=== PATIENT | female | born 1935 | race Caucasian/White ===

== ENCOUNTER → 2016-03-11 | Outpatient (CLI) | payer OTHER ==
--- NOTE | 2016-03-11 11:51 | US ---
Ultrasound Venous Duplex/Doppler left Leg History: Previous deep venous thrombosis in the left leg. COMPARISON: Ultrasound January 2016. Findings: Ultrasound venous duplex and Doppler imaging of the common femoral vein, femoral vein, pop liteal vein, calf veins, greater saphenous vein origin, and contralateral common femoral vein demonst rates normal compressibility, color flow, and Doppler flow without deep venous thrombosis. Impression: No deep venous thrombosis left leg.
== END ==
LOC: FIMAGING 10:51
PROVIDERS: ATTEND Internal Medicine Hematology & Oncology
DX: Z09 Encounter for follow-up examination after completed treatment for conditions other than malignant neoplasm (principal); C50.112 Malignant neoplasm of central portion of left female breast; Z86.718 Personal history of other venous thrombosis and embolism

== ENCOUNTER 2016-04-01 16:21 | Inpatient (IN) | payer OTHER ==
[2016-04-01] MEDS ORDERED: HYDROmorphONE/DILAUDID 1 MG/ML SYR IVP PRN (17:42)
[2016-04-01] MEDS ORDERED: ONDANSETRON 4 MG/2 ML VIAL IVP PRN (17:43)
[2016-04-01] MEDS ORDERED: ERTAPENEM 1 GM in NS 100 ML IV ONE (18:00)
[2016-04-01 18:49] LABS: % IMMATURE GRANULYOCYTES 0.6 % (0.0-1.1); ABSOLUTE IMMATURE GRANULOCYTES 0.08 10^3/uL (0.00-0.10); ADD DIFF? NO; ADD MORPH? NO; ADD SCAN? NO; ATYPICAL LYMPHOCYTE FLAG 0 (0-99); FRAGMENT RBC FLAG 0 (0-99); HEMATOCRIT 32.7 % (38.0-47.0); HEMOGLOBIN 11.4 g/dL (12.6-16.3); LEFT SHIFT FLG 0 (0-99); LIPEMIA HEMOLYSIS FLAG 90 (0-99); MEAN CELL HEMOGLOBIN 31.5 pg (27.9-34.1); MEAN CELL HEMOGLOBIN CONCENTR. 34.9 g/dL (32.4-36.7); MEAN CELL VOLUME 90.3 fL (81.5-99.8); MEAN PLATELET VOLUME 10.5 fL (8.7-11.7); PLATELET CLUMPS FLAG 0 (0-99); PLATELET COUNT 210 10^3/uL (150-400); RED BLOOD CELL COUNT 3.62 10^6/uL (4.18-5.33); RED CELL DISTRIBUTION WIDTH 12.7 % (11.5-15.2)
[2016-04-01] MEDS ORDERED: ACETAMINOPHEN 325 MG TAB PO PRN (19:00)
--- NOTE | 2016-04-01 19:25 | GHP ---
[f rep st] HISTORY AND PHYSICAL DATE OF ADMISSION: 04/01/2016 HISTORY OF PRESENT ILLNESS: The patient is an 80-year-old woman who 8 years ago had a right mastecto my and axillary lymph node dissection for breast cancer and in November underwent left lumpectomy and sentinel lymph node biopsies for a left breast cancer. She developed hematomas and a chronic seroma at the site which was resistant to repeated aspirations for which she underwent excision of the serom a cavity. This too was complicated by a hematoma and she subsequently had retraction of her nipple a nd recurrent drainage from her incision. She was scheduled for a left mastectomy for cosmesis with s ymmetry and comfort as well as prophylaxis for Wednesday. In the interim, she has developed cellulitis of the left breast which has been fairly resistant to outpatient Rocephin. PAST MEDICAL HISTORY: Breast cancers as per History of Present Illness. She also has hypertension, osteopenia, vitamin D deficiency, hypoxemia, hypothyroidism. PAST SURGICAL HISTORY: As per History of Present Illness, the right mastectomy and axillary lymph no de dissection, as well as left lumpectomy, sentinel lymph node biopsy, and excision of a chronic sero ma. MEDICATIONS: She takes vitamin D3 5000 units daily, Synthroid 12.5 mcg daily, Prilosec 20 mg 3 times a week, vitamin B12 500 mcg daily, atenolol 25 mg daily. ALLERGIES: She has no known drug allergies. FAMILY HISTORY: Her mother had breast cancer at age 55. SOCIAL HISTORY: She is a nonsmoker. REVIEW OF SYSTEMS: She denied fevers, chest pain, shortness of breath. She complained of redness of the left breast, pain in the left breast, nausea and vomiting. PHYSICAL EXAMINATION: VITAL SIGNS: Her temperature is 37.3, pulse 98, blood pressure 138/66, respir atory rate is 16. She is saturating 93% on room air. GENERAL: She is alert in no acute distress. Nontoxic appearing. Nonjaundiced. LUNGS: Clear to auscultation bilaterally. HEART: Regular rate and rhythm. ABDOMEN: Soft, nontender. BREASTS: Her left breast is erythematous centrally and tend er. LABORATORY DATA: CBC: White count is 14, hematocrit 33, platelets 210. ASSESSMENT: Cellulitis of the left breast. PLAN: She will be given broad-spectrum antibiotic therapy, IV fluid resuscitation and analgesia up t o the point of mastectomy, which is scheduled for Wednesday. If she becomes more toxic, she may require surgical debridement sooner. If she responds to IV antibiotic therapy this may help preserve some o f her skin flaps for mastectomy. /[id number]/MODL
[2016-04-01] MEDS: LR 1,000 ML IV SCH (20:11)
[2016-04-01] MEDS: HYDROCODONE/APAP 5/325 TAB PO PRN (20:34)
[2016-04-02 05:50] LABS: % IMMATURE GRANULYOCYTES 0.9 % (0.0-1.1); ADD DIFF? NO; ADD MORPH? NO; ADD SCAN? NO; ATYPICAL LYMPHOCYTE FLAG 0 (0-99); FRAGMENT RBC FLAG 0 (0-99); HEMATOCRIT 34.4 % (38.0-47.0); HEMOGLOBIN 11.6 g/dL (12.6-16.3); LEFT SHIFT FLG 20 (0-99); LIPEMIA HEMOLYSIS FLAG 80 (0-99); MEAN CELL HEMOGLOBIN 30.6 pg (27.9-34.1); MEAN CELL HEMOGLOBIN CONCENTR. 33.7 g/dL (32.4-36.7); MEAN CELL VOLUME 90.8 fL (81.5-99.8); MEAN PLATELET VOLUME 9.9 fL (8.7-11.7); PLATELET CLUMPS FLAG 10 (0-99); PLATELET COUNT 200 10^3/uL (150-400); RED BLOOD CELL COUNT 3.79 10^6/uL (4.18-5.33); RED CELL DISTRIBUTION WIDTH 12.7 % (11.5-15.2)
[2016-04-02] MEDS: LR 1,000 ML IV SCH (06:17)
[2016-04-02] MEDS: DOCUSATE SODIUM 100 MG CAP PO SCH ×2 (10:41→20:13)
[2016-04-02] MEDS: VANCOMYCIN HCL/NORMAL SALINE 250 ML IV SCH (10:42)
[2016-04-02] MEDS: ATENOLOL 25 MG TAB PO SCH (20:11)
[2016-04-02] MEDS: HYDROCODONE/APAP 5/325 TAB PO PRN (20:13)
[2016-04-03 05:16] LABS: % IMMATURE GRANULYOCYTES 1.6 % (0.0-1.1); ADD DIFF? NO; ADD MORPH? NO; ADD SCAN? NO; ATYPICAL LYMPHOCYTE FLAG 20 (0-99); FRAGMENT RBC FLAG 0 (0-99); HEMATOCRIT 33.9 % (38.0-47.0); HEMOGLOBIN 11.1 g/dL (12.6-16.3); LEFT SHIFT FLG 10 (0-99); LIPEMIA HEMOLYSIS FLAG 80 (0-99); MEAN CELL HEMOGLOBIN 30.2 pg (27.9-34.1); MEAN CELL HEMOGLOBIN CONCENTR. 32.7 g/dL (32.4-36.7); MEAN CELL VOLUME 92.4 fL (81.5-99.8); MEAN PLATELET VOLUME 9.6 fL (8.7-11.7); PLATELET CLUMPS FLAG 0 (0-99); PLATELET COUNT 219 10^3/uL (150-400); RED BLOOD CELL COUNT 3.67 10^6/uL (4.18-5.33); RED CELL DISTRIBUTION WIDTH 12.5 % (11.5-15.2)
[2016-04-03] MEDS: LEVOTHYROXINE 25 MCG TAB PO SCH (06:06)
[2016-04-03] MEDS: VANCOMYCIN HCL/NORMAL SALINE 250 ML IV SCH (09:42)
[2016-04-03] MEDS: DOCUSATE SODIUM 100 MG CAP PO SCH ×2 (09:48→19:34)
[2016-04-03] MEDS ORDERED: MIDAZOLAM 2 MG/2 ML VIAL ONE (11:24)
[2016-04-03] MEDS ORDERED: fentaNYL 250 MCG/5 ML INJ ONE (11:37)
[2016-04-03] MEDS ORDERED: BUPIVACAINE/EPI 0.5% 30 ML SDV ONE (11:47)
[2016-04-03] MEDS ORDERED: PROPOFOL 200 MG/20 ML VIAL ONE (12:08)
[2016-04-03] MEDS ORDERED: THROMBIN (RECOMBINANT) 20,000 UNIT SPRAY TP ONE (12:39)
[2016-04-03] MEDS ORDERED: fentaNYL 100 MCG/2 ML INJ ONE (13:35)
--- NOTE | 2016-04-03 14:19 | GOP ---
[f rep st] OPERATIVE REPORT DATE OF OPERATION: SURGEON: Karen Saavedra MD PREOPERATIVE DIAGNOSIS: Left breast cancer, chronic seroma, following multiple hematomas of the left breast. POSTOPERATIVE DIAGNOSIS: Left breast cancer, chronic seroma, following multiple hematomas of the left breast. PROCEDURE PERFORMED: Left mastectomy. FINDINGS: Chronic seroma tract within the central portion of the left breast, involving much of the breast, causing nipple retraction and distortion of the left breast. SPECIMENS: Left breast. ESTIMATED BLOOD LOSS: 200 mL. INDICATIONS: This is an 80-year-old woman, who is status post right mastectomy for breast cancer, and status post lumpectomy for left breast cancer. Her lumpectomy was complicated by hematomas as well as a chronic seroma, causing distortion of the breast and pain. She subsequently developed a soft tissue infection of the left breast and she desires left mastectomy. DESCRIPTION OF PROCEDURE: After informed consent was obtained and therapeutic antibiotics were continued, the patient was taken to the operating room, placed in a supine position. SCDs were placed to bilateral lower extremities. General anesthesia was administered. She was prepped and draped in a sterile fashion. After an appropriate surgical pause, a ruler and skin marker were used to fashion an elliptical incision surrounding the nipple-areolar complex. This incision was made using a 10 blade, and later extended laterally to prevent a lateral dog ear. Skin flaps were then created using Bovie electrocautery superiorly to the clavicle, medially to the lateral border of the sternum, inferiorly to the inframammary fold, and laterally to include the tail of the breast to the latissimus. The breast tissue was then dissected with the pectoralis fascia and with the scar from the seroma cavity from the pectoralis muscle, in a medial to lateral direction. The specimen was oriented for Pathology and sent for permanent assessment. Meticulous hemostasis was obtained using Bovie electrocautery. The wound was irrigated, suctioned, and Bovie electrocautery was used again for hemostasis. Thrombin spray was applied. A 15-Greek KAYLEE drain was placed in the mastectomy cavity, being brought out through a separate stab incision lateral to our mastectomy incision , and secured to the skin using 3-0 nylon suture. The skin was closed using interrupted 3-0 Vicryl deep dermal sutures, and 3-0 V-Loc suture in a running fashion. Prior to closure of the lateral aspect, Carli was also applied to the mastectomy cavity. Mastisol, Steri-Strips and a dry dressing were applied. The patient was awakened from general anesthesia, extubated, and taken to the post anesthesia recovery unit. /[id number]/MODL MTDD
[2016-04-03] MEDS ORDERED: PANTOPRAZOLE SODIUM 40 MG TAB PO SCH (17:10)
[2016-04-03] MEDS: HYDROCODONE/APAP 5/325 TAB PO PRN (19:32)
[2016-04-03] MEDS: ATENOLOL 25 MG TAB PO SCH (19:33)
[2016-04-04] MEDS: LR 1,000 ML IV SCH (02:44)
[2016-04-04] MEDS: LEVOTHYROXINE 25 MCG TAB PO SCH (05:40)
[2016-04-04] MEDS: HYDROCODONE/APAP 5/325 TAB PO PRN ×2 (05:41→18:25)
[2016-04-04 06:11] LABS: % IMMATURE GRANULYOCYTES 1.7 % (0.0-1.1); ABSOLUTE IMMATURE GRANULOCYTES 0.14 10^3/uL (0.00-0.10); ADD DIFF? NO; ADD MORPH? NO; ADD SCAN? NO; ATYPICAL LYMPHOCYTE FLAG 30 (0-99); FRAGMENT RBC FLAG 0 (0-99); HEMATOCRIT 30.5 % (38.0-47.0); HEMOGLOBIN 9.9 g/dL (12.6-16.3); LEFT SHIFT FLG 20 (0-99); LIPEMIA HEMOLYSIS FLAG 80 (0-99); MEAN CELL HEMOGLOBIN CONCENTR. 32.5 g/dL (32.4-36.7); MEAN CELL VOLUME 92.4 fL (81.5-99.8); MEAN PLATELET VOLUME 10.5 fL (8.7-11.7); PLATELET CLUMPS FLAG 10 (0-99); PLATELET COUNT 237 10^3/uL (150-400); RED CELL DISTRIBUTION WIDTH 12.7 % (11.5-15.2)
--- NOTE | 2016-04-04 10:53 | SOAPPROG ---
SOAP Progress Note Assessment/Plan: Assessment: s/p left mastectomy for chronic seroma with soft tissue infection following lumpectomy for breast cancer Plan: continue oral analgesia continue to monitor skin flaps continue Vancomycin 04/04/16 10:52 Subjective: pain controlled Objective: Vital Signs Temp Pulse Resp BP Pulse Ox 36.6 C 69 14 141/67 H 95 04/04/16 08:00 04/04/16 08:00 04/04/16 08:00 04/04/16 08:00 04/04/16 08:00 Laboratory Results 04/04/16 05:34 04/03/16 04/04/16 04/05/16 05:59 05:59 05:59 Intake Total 932 3137 Output Total 415 Balance 932 4570 Physical Exam - Physical Exam General Appearance: alert Respiratory: other (patch of skin around incision mildly dusky, no hematoma) ICD10 Worksheet Patient Problems: Problems Problem Status Diagnosed Breast hematoma after procedure Acute Tachycardia Acute
[2016-04-04] MEDS: VANCOMYCIN HCL/NORMAL SALINE 250 ML IV SCH (12:34)
[2016-04-04] MEDS ORDERED: MAGNESIUM HYDROXIDE 30 ML UDCUP PO PRN (15:47)
[2016-04-04] MEDS ORDERED: BISACODYL 10 MG SUPP PR ONE ×2 (16:00→20:00)
[2016-04-04] MEDS: ATENOLOL 25 MG TAB PO SCH (18:26)
[2016-04-04] MEDS: DOCUSATE SODIUM 100 MG CAP PO SCH ×2 (18:28→22:36)
[2016-04-05 05:39] LABS: CREATININE 0.9 mg/dL (0.6-1.0); GLOMERULAR FILTRATION RATE > 60
[2016-04-05] MEDS: LEVOTHYROXINE 25 MCG TAB PO SCH (07:07)
[2016-04-05] MEDS ORDERED: FUROSEMIDE 20 MG TAB PO ONE (09:59)
--- NOTE | 2016-04-05 09:59 | SOAPPROG ---
SOAP Progress Note Assessment/Plan: Assessment: s/p left mastectomy for chronic seroma with soft tissue infection following lumpectomy for breast cancer superficial thrombophlebitis at prior IV site constipation Plan: continue to monitor skin flaps continue Vancomycin warm compress to IV site enema for bowel care 04/05/16 09:59 Subjective: tolerating a diet no BM Objective: Vital Signs Temp Pulse Resp BP Pulse Ox 36.9 C 72 16 161/83 H 98 04/05/16 08:00 04/05/16 08:00 04/05/16 08:00 04/05/16 08:00 04/05/16 08:00 Laboratory Results 04/04/16 05:34 04/05/16 04:59 04/04/16 04/05/16 04/06/16 05:59 05:59 05:59 Intake Total 3133 2 Output Total 415 110 Balance 2718 -108 Physical Exam - Physical Exam General Appearance: alert Cardiac/Chest: other (skin flaps viable, KAYLEE drainage serosanguinous) ICD10 Worksheet Patient Problems: Problems Problem Status Diagnosed Breast hematoma after procedure Acute Tachycardia Acute
[2016-04-05] MEDS: HYDROCODONE/APAP 5/325 TAB PO PRN ×2 (11:38→19:40)
[2016-04-05] MEDS: DOCUSATE SODIUM 100 MG CAP PO SCH ×2 (11:41→19:41)
[2016-04-05] MEDS: VANCOMYCIN HCL/NORMAL SALINE 250 ML IV SCH (19:22)
[2016-04-05] MEDS: ATENOLOL 25 MG TAB PO SCH (19:41)
[2016-04-06] MEDS: LEVOTHYROXINE 25 MCG TAB PO SCH (05:03)
[2016-04-06 06:04] LABS: CREATININE 0.9 mg/dL (0.6-1.0); GLOMERULAR FILTRATION RATE > 60
[2016-04-06 07:57] VITALS: BP 150/80; PULSE 68; RESP 18; TEMP 97.3; O2SAT 100
[2016-04-06] MEDS: DOCUSATE SODIUM 100 MG CAP PO SCH (09:01)
[2016-04-06] MEDS: HYDROCODONE/APAP 5/325 TAB PO PRN (09:05)
[2016-04-06] MEDS: VANCOMYCIN HCL/NORMAL SALINE 250 ML IV SCH (09:46)
--- NOTE | 2016-04-06 12:44 | GDS ---
[f rep st] DISCHARGE SUMMARY ADMISSION DIAGNOSIS: Soft tissue infection of left breast, status post excision of chronic seroma rita muse. PROCEDURE: Left mastectomy on 04/03/2016. HISTORY OF PRESENT ILLNESS AND HOSPITAL COURSE: This is an 80-year-old woman 8 years status post rig ht mastectomy and axillary lymph node dissection for breast cancer who, in November, underwent left nadira mpectomy and sentinel lymph node biopsy for left breast cancer. She developed hematomas and a chroni c seroma at the site, which was resistant to repeat aspirations and for which she underwent excision of the seroma cavity. This too was complicated by hematoma and subsequently, she developed retractio n of her nipple and recurrent drainage from her incision. She was scheduled for left mastectomy for cosmesis with symmetry and for comfort, as well as prophylaxis for any further breast cancers. This was scheduled for Wednesday. In the interim, she developed cellulitis of the left breast and was admitt ed for treatment with IV vancomycin. The cellulitis improved with IV vancomycin. She subsequently u nderwent left mastectomy on the . Initially, her pain was controlled with IV medications. She w as started on a diet, which she tolerated and subsequently, her pain was controlled with oral analges ia. We were watching her skin flaps for just an area of duskiness, which eventually resolved. She wa s also treated with bowel care for constipation, which improved following an enema. On the day of yared colunga, she is tolerating a diet, her pain is well controlled with oral medication, her skin flaps a re viable, and her KAYLEE drainage is serosanguineous. She will be discharged home with instructions to follow up with Dr. Saavedra in 3-5 days, and to empty the drain and record its output daily. DISCHARGE MEDICATIONS: [place] 5/325 mg 1-2 tablets p.o. q.4 hours p.r.n. pain, Colace 100 mg p.o. twi ce daily. She will also continue her home medications, which include atenolol 25 mg nightly, Synthro id 12.5 mcg daily, Tylenol 650 mg p.o. q.6 hours p.r.n. mild pain, aspirin 81 mg nightly, vitamin D3 at 5000 units p.o. daily, vitamin B12 at 500 mcg daily, Exemestane 25 mg nightly, Prilosec 20 mg on , Wednesdays, and Fridays, and magnesium oxide 400 mg p.o. daily. /[id number]/MODL
== END 2016-04-06 11:01 | disposition home or self-care (01) | DRG 582 ==
LOC: F3E 16:21
PROVIDERS: ADMIT Surgery; ATTEND Surgery
PROC: 0HTU0ZZ Resection of Left Breast, Open Approach (ICD-10-PCS; principal; 2016-04-03 11:45)
DX: C50.912 Malignant neoplasm of unspecified site of left female breast (principal); L76.34 Postprocedural seroma of skin and subcutaneous tissue following other procedure; I10 Essential (primary) hypertension; M85.80 Other specified disorders of bone density and structure, unspecified site; E03.9 Hypothyroidism, unspecified; E55.9 Vitamin D deficiency, unspecified; K21.9 Gastro-esophageal reflux disease without esophagitis; K59.00 Constipation, unspecified; Z80.3 Family history of malignant neoplasm of breast
CPT/HCPCS: J1335; J2250; J2704; J3010; J3370

== ENCOUNTER 2016-05-07 19:02 | Emergency (ER) | payer OTHER ==
--- NOTE | 2016-05-07 20:16 | EDPHY ---
H & P Time Seen by Provider: 05/07/16 20:08 HPI/ROS: CHIEF COMPLAINT: Hematuria HISTORY OF PRESENT ILLNESS: This patient is an 80 year old female who presents to the Emergency Department complaining of hematuria beginning at 1600 today. She also complains of urinary urgency and intermittent left-sided flank pain beginning Wednesday. She denies dysuria. No history of kidney stones. No anticoagulant use. REVIEW OF SYSTEMS: Constitutional: No fever, no chills Eyes: No visual changes ENT: No sore throat Respiratory: No cough, no shortness of breath Cardiac: No chest pain Gastrointestinal: No nausea, no vomiting, no abdominal pain Genitourinary: +hematuria, +urinary urgency, no dysuria Musculoskeletal: +left flank pain, no leg pain or swelling Skin: No rash Neurological: No headache, no numbness, no weakness Psychiatric: No depression Past Medical/Surgical History: Recent mastectomy. Prior lumpectomy with unspecified complications, since improved. No anticoagulant use. Social History: Son at bedside. Smoking Status: Former smoker Physical Exam: General Appearance: Alert, no distress Eyes: Pupils equal and round, no conjunctival pallor or injection ENT, Mouth: Mucous membranes moist Neck: Normal inspection Respiratory: Lungs are clear to auscultation Cardiovascular: Regular rate and rhythm Gastrointestinal: Abdomen is soft and non-tender Genitourinary: No evidence of vaginal bleeding Neurological: A&O, nonfocal, normal gait Skin: Warm and dry, no rash Extremities: Nontender, no pedal edema Psychiatric: Mood and affect normal Constitutional: Initial Vital Signs Temperature (C) 36.8 C 05/07/16 19:11 Heart Rate 89 05/07/16 19:11 Respiratory Rate 20 05/07/16 19:11 Blood Pressure 173/110 H 05/07/16 19:11 O2 Sat (%) 92 05/07/16 19:11 O2 Delivery Mode Room Air Allergies/Adverse Reactions: adhesive tape Allergy (Verified 04/01/16 17:09) latex Allergy (Verified 11/22/15 11:53) Home Medications: Medication Instructions Recorded Cholecalciferol (Vitamin D3) 5,000 unit PO DAILY 11/18/13 [Vitamin D3] Levothyroxine [Synthroid 25 mcg 0.5 tab PO DAILY06 11/19/13 (*)] Aspirin 81 mg PO HS 02/05/16 Atenolol 25 mg PO HS 02/05/16 Cyanocobalamin [Vitamin B12 (*)] 500 mcg PO DAILY 02/05/16 Exemestane 25 mg PO HS 02/05/16 Magnesium Oxide [Magnesium Oxide 1 tab PO DAILY 02/05/16 400 mg (*)] Omeprazole Magnesium [Prilosec Otc] 20 mg PO MWF 02/05/16 Acetaminophen [Tylenol 325mg (*)] 650 mg PO Q6HRS PRN #0 tab 04/06/16 Docusate Sodium [Colace 100 MG (*)] 100 mg PO BID #30 cap 04/06/16 Hydrocodone/APAP 5/325 [[place] 2 tab PO Q4HRS PRN #20 tab 04/06/16 5/325 (*)] Cephalexin [Keflex (*)] 500 mg PO TID #21 cap 05/07/16 Medical Decision Making - Diagnostics Imaging: Study: CT of the abdomen and pelvis Indication: Hematuria, flank pain Results: CT scan of the abdomen and pelvis was obtained. The results of the study are: negative for kidney stone. The study was read by the radiologist, Dr. Maxwell Wilson. I viewed the images myself on the PACS system. ED Course/Re-evaluation: This patient presents with left flank pain and gross hematuria. Will proceed with UA and CT of the abdomen and pelvis to rule out kidney stone. UA is positive for UTI with hematuria. I discussed UA and imaging results with the patient. No evidence of kidney stone. Urine culture sent. She will be discharged home on Keflex to treat UTI with instructions to follow-up with her PCP for reevaluation in 3-5 days. She is agreeable to this and will be discharged home in good condition. Differential Diagnosis: Differential diagnosis includes though it is not limited to appendicitis, cholecystitis, diverticulitis, pyelonephritis, bowel perforation, small bowel obstruction. - Data Points Laboratory Results: Laboratory Results 05/07/16 20:40 05/07/16 20:40 Medications Given: Discontinued Medications Cephalexin (Keflex 500 Mg Prepack#4) 1 btl TAKEHOME EDNOW ONE PRN Reason: Protocol Stop: 05/07/16 21:31 Last Admin: 05/07/16 21:39 Dose: 1 btl Cephalexin HCl (Keflex) 500 mg PO EDNOW ONE PRN Reason: Protocol Stop: 05/07/16 21:02 Last Admin: 05/07/16 21:38 Dose: 500 mg Departure - Departure Disposition: Home, Routine, Self-Care Clinical Impression: UTI (urinary tract infection) Condition: Good Instructions: Cephalexin (By mouth), Urinary Tract Infection in Women (ED) Additional Instructions: 1. Take the full course of Keflex as prescribed. Take Keflex 3 times daily. 2. Drink plenty of fluids to stay well hydrated. 3. Follow-up with your primary care provider if your symptoms do not improve within the next 3-5 days. 4. Return to the Emergency Department if you experience lightheadedness or weakness, increased blood in your urine, worsening pain, or for other serious concerns. Referrals: Rosie Mcgarry MD [Primary Care Provider] - As per Instructions Prescriptions: Cephalexin [Keflex (*)] 500 mg PO TID #21 cap Report Scribed for: Roz Rocha Report Scribed by: Evita Nielsen Date of Report: 05/07/16 Time of Report: 20:14 Physician Review and Approval Statement: 05/07/16 20:14 Portions of this note were transcribed by a certified medical aide. I personally performed a history, physical exam, medical decision making, and confirmed accuracy of information the transcribed note.
[2016-05-07 20:35] LABS: COLOR RED; LEUKOCYTE ESTERASE,URINE 1+ (NEGATIVE); NITRITE,URINE NEGATIVE (NEGATIVE)
[2016-05-07 20:46] LABS: BACTERIA 3+ /hpf (NONE SEEN); MUCUS TRACE /lpf (NONE-1+); RBC,URINE 15-25 /hpf (0-3); WBC,URINE 50-182 /hpf (0-3); YEAST PRESENT /hpf (NONE SEEN)
[2016-05-07] MEDS ORDERED: CEPHALEXIN 500 MG CAP PO ONE (21:01)
[2016-05-07 21:02] LABS: % IMMATURE GRANULYOCYTES 0.5 % (0.0-1.1); ABSOLUTE IMMATURE GRANULOCYTES 0.05 10^3/uL (0.00-0.10); ADD DIFF? NO; ADD MORPH? NO; ADD SCAN? NO; ATYPICAL LYMPHOCYTE FLAG 10 (0-99); FRAGMENT RBC FLAG 0 (0-99); HEMATOCRIT 37.1 % (38.0-47.0); HEMOGLOBIN 12.2 g/dL (12.6-16.3); LEFT SHIFT FLG 0 (0-99); LIPEMIA HEMOLYSIS FLAG 80 (0-99); MEAN CELL HEMOGLOBIN 28.7 pg (27.9-34.1); MEAN CELL HEMOGLOBIN CONCENTR. 32.9 g/dL (32.4-36.7); MEAN CELL VOLUME 87.3 fL (81.5-99.8); MEAN PLATELET VOLUME 9.8 fL (8.7-11.7); PLATELET CLUMPS FLAG 10 (0-99); PLATELET COUNT 173 10^3/uL (150-400); RED BLOOD CELL COUNT 4.25 10^6/uL (4.18-5.33); RED CELL DISTRIBUTION WIDTH 14.4 % (11.5-15.2)
[2016-05-07 21:24] LABS: ANION GAP 18 mEq/L (8-16); CALCIUM 10.5 mg/dL (8.5-10.4); CARBON DIOXIDE 22 mEq/l (22-31); CHLORIDE 98 mEq/L (97-110); GLOMERULAR FILTRATION RATE 53; GLUCOSE 108 mg/dL (70-100); POTASSIUM 3.9 mEq/L (3.5-5.2); SODIUM 138 mEq/L (134-144)
[2016-05-07] MEDS ORDERED: CEPHALEXIN 500MG PREPACK#4 BTL TAKEHOME ONE (21:30)
[2016-05-07 21:49] VITALS: BP 169/95; PULSE 95; RESP 18; TEMP 97.7; O2SAT 90
== END 2016-05-07 21:49 | disposition home or self-care (01) ==
DX: N39.0 Urinary tract infection, site not specified (principal); B96.20 Unspecified Escherichia coli [E. coli] as the cause of diseases classified elsewhere; Z87.891 Personal history of nicotine dependence; Z91.040 Latex allergy status; Z79.82 Long term (current) use of aspirin

== ENCOUNTER → 2016-05-15 | Outpatient (CLI) | payer OTHER | LOC: BMCIMAGING 09:32 | PROVIDERS: ATTEND Internal Medicine | DX: R22.42 Localized swelling, mass and lump, left lower limb (principal) ==

== ENCOUNTER → 2017-11-18 | Outpatient (CLI) | payer OTHER | LOC: BMCIMAGING 13:52 | PROVIDERS: ATTEND Internal Medicine | DX: M41.86 Other forms of scoliosis, lumbar region (principal); M51.36 Other intervertebral disc degeneration, lumbar region ==

== ENCOUNTER → 2018-05-27 | Outpatient (CLI) | payer OTHER | LOC: BMCIMAGING 10:30 | PROVIDERS: ATTEND Internal Medicine Critical Care Medicine | DX: R06.02 Shortness of breath (principal) ==

== ENCOUNTER 2018-06-24 22:22 | Observation (INO) | payer OTHER ==
--- NOTE | 2018-06-24 22:32 | EDPHY ---
H & P Time Seen by Provider: 06/24/18 22:32 HPI/ROS: HPI CHIEF COMPLAINT: Hypertension HISTORY OF PRESENT ILLNESS: Patient is a 82-year-old female, presents emergency room with hypertension. She states she feels lightheaded, she denies any chest pain or chest pressure, denies headache, denies significant shortness of breath. She states over the past week she has been noticing a blood pressure running high in the 170 systolic. She went to her primary care doctor's office around [address] Eisenberg, and had blood pressure in the office of 200 systolic. She was started on amlodipine and losartan. She went to bed tonight got up to use the bathroom felt very lightheaded she took a blood pressure again and noticed that was 200s at home. She did not have a syncopal event. She denies chest pain or shortness of breath. She presents to the emergency room stating that her blood pressures over 200 at home and she is feeling lightheaded. Past Medical History: Medical history significant hypertension, thyroid disease , GERD Past Surgical History: Mastectomy Social History: Denies drugs alcohol tobacco. Family History: Noncontributory ROS REVIEW OF SYSTEMS: 10 Systems were reviewed and negative with the exception of the elements mentioned in the history of present illness. Exam Constitutional triage nursing summary reviewed, vital signs reviewed, awake/ alert. Blood pressure 188/89 Eyes normal conjunctivae and sclera, EOMI, PERRLA. HENT normal inspection, atraumatic, moist mucus membranes, no epistaxis, neck supple/ no meningismus, no raccoon eyes. Respiratory clear to auscultation bilaterally, normal breath sounds, no respiratory distress, no wheezing. Cardiovascular rate normal, regular rhythm, no murmur, no edema, distal pulses normal. Gastrointestinal soft, non-tender, no rebound, no guarding, normal bowel sounds, no distension, no pulsatile mass. Genitourinary no CVA tenderness. Musculoskeletal no midline vertebral tenderness, full range of motion, no calf swelling, no tenderness of extremities, no meningismus, good pulses, neurovascularly intact. Skin pink, warm, & dry, no rash, skin atraumatic. Neurologic awake, alert and oriented x 3, AAOx3, moves all 4 extremities equally, motor intact, sensory intact, CN II-XII intact, normal cerebellar, normal vision, normal speech. Psychiatric normal mood/affect. Heme/Lymph/Immune no lymphadenopathy. Differential Diagnosis: Includes but is not limited to in a particular order hypertension urgency, hypertensive emergency, renal failure, cardiac disease Medical Decision Making: Plan for this patient with hypertension and lightheadedness, will placed on diagnostic cardiac sonographer obtain EKG, troponin, kidney function, gentle IV fluids, she has no chest pain or shortness of breath or headache at this time. Will closely monitor blood pressure. Re-evaluation: EKG interpretation by me on record in [facility] system. Impression time of EKG 2252: Normal sinus rhythm rate of 73, no signs of acute ischemia Troponin 0.00 Labs reassuring. Blood pressure 132/70. Patient much improved. 4:01 a.m. patient did not ambulate well, got lightheaded and dizzy. [place] flushed. We placed her back into her bed recheck blood pressure systolic was in the 180s again. Repeat troponin is 0.01 EKG repeat time of repeat EKG 3:30 a.m. Sinus rhythm rate of 67, T-wave flattening inferior leads. I do not appreciate significant ST elevation it appears similar to her previous EKG tonight as well as her old EKG dated November 2015. Given that she cannot walk without getting lightheaded and feeling like she is going to pass out and given that her blood pressure is high again she will need to be admitted to the hospital for symptomatic hypertension. BP elevated again 180s. Plan for admission Patient agrees for admission She has no CP or sob or back pain. Denies Neck pain. Lightheaded and flushed when she ambulates. Trops negative Ekgs stable CXR reviewed. BP both arms. Plan for admission To [facility] Dr. Kelley agrees to admit. Patient agrees for admission. Source: Patient - Medical/Surgical History Hx Asthma: No Hx Chronic Respiratory Disease: No Hx Diabetes: No Hx Cardiac Disease: No Hx Renal Disease: No Hx Cirrhosis: No Hx Alcoholism: No Hx HIV/AIDS: No Hx Splenectomy or Spleen Trauma: No Other PMH: HTN, hypothyroid, breast CA, hysterectomy, cholecysectomy, knee surgery elective - Social History Smoking Status: Former smoker Constitutional: Initial Vital Signs Temperature (C) 36.7 C 06/24/18 22:28 Heart Rate 87 06/24/18 22:28 Respiratory Rate 18 06/24/18 22:28 Blood Pressure 107/92 H 06/24/18 22:28 O2 Sat (%) 90 L 06/24/18 22:28 O2 Delivery Mode Room Air O2 (L/minute) 2 Allergies/Adverse Reactions: adhesive tape Allergy (Verified 06/26/18 20:21) latex Allergy (Verified 06/26/18 20:21) Home Medications: Medication Instructions Recorded Cholecalciferol (Vitamin D3) 5,000 unit PO DAILY 11/18/13 [Vitamin D3] Levothyroxine [Synthroid 25 mcg 0.5 tab PO DAILY06 11/19/13 (*)] Cyanocobalamin [Vitamin B12 (*)] 500 mcg PO DAILY 02/05/16 Omeprazole Magnesium [Prilosec Otc] 20 mg PO DAILY 02/05/16 Acetaminophen [Tylenol 325mg (*)] 650 mg PO Q6HRS PRN #0 tab 04/06/16 Aspirin [Aspirin 81mg (*)] 81 mg PO DAILY 06/25/18 Atenolol [Tenormin 25 mg (*)] 25 mg PO HS 06/25/18 Herbals/Supplements -Info Only 1 ea PO DAILY 06/25/18 Losartan Potassium [Cozaar 25 mg 25 mg PO DAILY@15 06/25/18 (*)] amLODIPine BESYLATE [Norvasc 2.5 2.5 mg PO DAILY@06/25/18 mg (*)] Medical Decision Making - Data Points Laboratory Results: Laboratory Results 06/24/18 22:35 06/24/18 22:35 Medications Given: Discontinued Medications Amlodipine Besylate (Norvasc) 2.5 mg PO DAILY [facility] Stop: 12/22/18 08:59 Last Admin: 06/25/18 11:50 Dose: 2.5 mg Aspirin (Aspirin) 81 mg PO DAILY [facility] Stop: 12/22/18 10:59 Last Admin: 06/25/18 11:53 Dose: 81 mg Atenolol (Tenormin) 25 mg PO DAILY ROSSY Stop: 12/22/18 08:59 Last Admin: 06/25/18 17:28 Dose: Not Given Enoxaparin Sodium (Lovenox) 30 mg SC DAILY [facility] Stop: 12/22/18 08:59 Last Admin: 06/25/18 10:06 Dose: 30 mg Sodium Chloride (Ns) 500 mls @ 1,000 mls/hr IV EDNOW ONE PRN Reason: Protocol Stop: 06/24/18 23:12 Last Admin: 06/24/18 22:50 Dose: 500 mls Levothyroxine Sodium (Synthroid) 12.5 mcg PO ONCE ONE Stop: 06/25/18 06:02 Last Admin: 06/25/18 06:14 Dose: 12.5 mcg Losartan Potassium (Cozaar) 25 mg PO DAILY ROSSY Stop: 12/22/18 08:59 Last Admin: 06/25/18 11:50 Dose: 25 mg Pantoprazole Sodium (Protonix) 20 mg PO ONCE ONE Stop: 06/25/18 06:02 Last Admin: 06/25/18 06:14 Dose: 20 mg Point of Care Test Results: Chemistry 06/25/18 06/24/18 03:45 22:50 POC Troponin I 0.01 ng/mL ng/mL 0.00 ng/mL ng/mL (0.00-0.08) (0.00-0.08) Departure - Departure Disposition: [facility] Inpatient Acute Clinical Impression: Hypertensive urgency Condition: Fair
[2018-06-24] MEDS ORDERED: NS 500 ML IV ONE (22:43)
[2018-06-24 22:56] LABS: PLATELET COUNT 153 10^3/uL (150-400)
[2018-06-24 23:07] LABS: INR 0.93 (0.83-1.16); PROTIME(PATIENT) 12.1 SEC (12.0-15.0)
[2018-06-25] MEDS ORDERED: ONDANSETRON 4 MG/2 ML VIAL IVP PRN (04:26)
[2018-06-25] MEDS ORDERED: ACETAMINOPHEN 325 MG TAB PO PRN (04:26)
[2018-06-25] MEDS ORDERED: ONDANSETRON DISINTEGRATING 4 MG TAB PO PRN (04:26)
--- NOTE | 2018-06-25 05:11 | PDGENHP ---
History and Physical - Chief Complaint Hypertension - History of Present Illness 82 yo F w/ hx of HTN and hypothyroidism presents with dizziness and elevated blood pressure. The patient has been feeling poorly since Wednesday of this week when she experienced a dizzy spell. This occurred after a physical therapy where she had a good amount of massage performed to her neck. Over the next few days she did not feel particularly dizzy but tells me she felt dazed. Over this period she has also noted elevated blood pressure. She has noted SBP over 200 a few times, including at her PCP's office today. She was started on losartan and amlodipine as a result. She also has been instructed to continue her daily atenolol. Despite these meds she again noted a systolic in the 200's tonight. She got up to go to the bathroom and felt dizzy again so she came to the ED. In the ED she felt improved for a while but felt dizzy when she got up to try to walk. She is being admitted for observation. Case discussed with ED physician Dr. Eduardo; records reviewed and summarized above. History Information - Allergies/Home Medication List Allergies/Adverse Reactions: adhesive tape Allergy (Verified 04/01/16 17:09) latex Allergy (Verified 11/22/15 11:53) Home Medications: Cholecalciferol (Vitamin D3) [Vitamin D3] 5,000 unit PO DAILY 11/18/13 [Last Taken 02/04/16] Levothyroxine [Synthroid 25 mcg (*)] 0.5 tab PO DAILY06 11/19/13 [Last Taken 10/08] Aspirin 81 mg PO HS 02/05/16 [Last Taken 02/03/16] Atenolol 25 mg PO HS 02/05/16 [Last Taken Unknown] Cyanocobalamin [Vitamin B12 (*)] 500 mcg PO DAILY 02/05/16 [Last Taken Unknown] Exemestane 25 mg PO HS 02/05/16 [Last Taken Unknown] Magnesium Oxide [Magnesium Oxide 400 mg (*)] 1 tab PO DAILY 02/05/16 [Last Taken Unknown] Omeprazole Magnesium [Prilosec Otc] 20 mg PO MWF 02/05/16 [Last Taken Unknown] I have personally reviewed and updated: family history, medical history - Past Medical History hypertension Additional medical history: Hypothyroid - Surgical History Reports: cholecystectomy, mastectomy - Family History Positive for: cancer (Breast) - Social History Smoking Status: Former smoker Review of Systems Review of Systems: ROS: 10pt was reviewed & negative except for what was stated in HPI & below Physical Exam Physical Exam: Temp Pulse Resp BP Pulse Ox 36.7 C 75 17 130/70 H 94 06/24/18 22:28 06/25/18 04:15 06/25/18 02:30 06/25/18 04:43 06/25/18 03:57 Constitutional: no apparent distress, not in pain Eyes: PERRL, EOMI Ears, Nose, Mouth, Throat: moist mucous membranes, no oral mucosal ulcers Cardiovascular: regular rate and rhythym, systolic murmur Respiratory: no respiratory distress, no rales or rhonchi Gastrointestinal: normoactive bowel sounds, soft, non-tender abdomen Skin: warm, normal color Neurologic: AAOx3, CN II-XII Intact Psychiatric: interacting appropriately, not anxious Lab Data & Imaging Review 06/24/18 22:35 06/24/18 22:35 WBC 6.53 10^3/uL (3.80-9.50) 06/24/18 22:35 RBC 4.34 10^6/uL (4.18-5.33) 06/24/18 22:35 Hgb 13.9 g/dL (12.6-16.3) 06/24/18 22:35 Hct 41.3 % (38.0-47.0) 06/24/18 22:35 MCV 95.2 fL (81.5-99.8) 06/24/18 22:35 MCH 32.0 pg (27.9-34.1) 06/24/18 22:35 MCHC 33.7 g/dL (32.4-36.7) 06/24/18 22:35 RDW 12.8 % (11.5-15.2) 06/24/18 22:35 Plt Count 153 10^3/uL (150-400) 06/24/18 22:35 MPV 10.0 fL (8.7-11.7) 06/24/18 22:35 Neut % (Auto) 56.1 % (39.3-74.2) 06/24/18 22:35 Lymph % (Auto) 33.4 % (15.0-45.0) 06/24/18 22:35 Surry % (Auto) 7.5 % (4.5-13.0) 06/24/18 22:35 Eos % (Auto) 1.7 % (0.6-7.6) 06/24/18 22:35 Baso % (Auto) 0.5 % (0.3-1.7) 06/24/18 22:35 Nucleat RBC Rel Count 0.0 % (0.0-0.2) 06/24/18 22:35 Absolute Neuts (auto) 3.67 10^3/uL (1.70-6.50) 06/24/18 22:35 Absolute Lymphs (auto) 2.18 10^3/uL (1.00-3.00) 06/24/18 22:35 Absolute Monos (auto) 0.49 10^3/uL (0.30-0.80) 06/24/18 22:35 Absolute Eos (auto) 0.11 10^3/uL (0.03-0.40) 06/24/18 22:35 Absolute Basos (auto) 0.03 10^3/uL (0.02-0.10) 06/24/18 22:35 Absolute Nucleated RBC 0.00 10^3/uL (0-0.01) 06/24/18 22:35 Immature Gran % 0.8 % (0.0-1.1) 06/24/18 22: Immature Gran # 0.05 10^3/uL (0.00-0.10) 06/24/18 22:35 PT 12.1 SEC (12.0-15.0) 06/24/18 22:35 INR 0.93 (0.83-1.16) 06/24/18 22:35 APTT 29.6 SEC (23.0-38.0) 06/24/18 22:35 Sodium 133 mEq/L (135-145) L 06/24/18 22:35 Potassium 3.5 mEq/L (3.5-5.2) 06/24/18 22:35 Chloride 98 mEq/L (97-110) 06/24/18 22:35 Carbon Dioxide 24 mEq/l (22-31) 06/24/18 22:35 Anion Gap 11 mEq/L (6-14) 06/24/18 22:35 BUN 15 mg/dL (7-23) 06/24/18 22:35 Creatinine 0.9 mg/dL (0.6-1.0) 06/24/18 22:35 Estimated GFR 60 06/24/18 22:35 Glucose 108 mg/dL (70-100) H 06/24/18 22:35 Calcium 10.5 mg/dL (8.5-10.4) H 06/24/18 22:35 Magnesium 1.7 mg/dL (1.6-2.3) 06/24/18 22:35 POC Troponin I 0.01 ng/mL (0.00-0.08) 06/25/18 03:45 NT-Pro-B Natriuret Pep 715 pg/mL (0-450) H 06/24/18 22:35 Urine Color YELLOW 06/25/18 03:40 Urine Appearance CLEAR 06/25/18 03:40 Urine pH 7.0 (5.0-7.5) 06/25/18 03:40 Ur Specific Brilliant 1.010 (1.002-1.030) 06/25/18 03:40 Urine Protein NEGATIVE (NEGATIVE) 06/25/18 03:40 Urine Ketones NEGATIVE (NEGATIVE) 06/25/18 03:40 Urine Blood NEGATIVE (NEGATIVE) 06/25/18 03:40 Urine Nitrate NEGATIVE (NEGATIVE) 06/25/18 03:40 Urine Bilirubin NEGATIVE (NEGATIVE) 06/25/18 03:40 Urine Urobilinogen NEGATIVE EU (0.2-1.0) 06/25/18 03:40 Ur Leukocyte Esterase NEGATIVE (NEGATIVE) 06/25/18 03:40 Urine Glucose NEGATIVE (NEGATIVE) 06/25/18 03:40 Visualized and Interpreted EKG results: Yes EKG Interpretation: Positive for: normal sinsus rhythm, other (Stable compared to prior) Assessment & Plan Assessment: 82 yo F w/ hx of HTN and hypothyroid presents with dizziness and elevated blood pressure. Plan: 1. Hypertension, uncontrolled - BP quite labile here with a systolic range from 109-188. Some of this could be due to new medication regimen as patient only took first dose of amlodipine and losartan prior to coming to the ED. - Admit for observation - Reasonable to continue medication regimen recently prescribed by PCP and observe (atenolol 25 gm qD, losartan 25 mg qD, amlodipine 2.5 mg qD) 2. Dizziness - This has been occurring intermittently for several days. It is possible uncontrolled hypertension is contributing. She has a non-focal neurologic exam. - BP control as above - PT/OT evaluations - May benefit from brain and C-spine imaging if persistent 3. Hypothyroid - TSH on 06/24/18 WNL. - Continue LTX Diet - Regular Code - Full Ppx - LMWH Dispo - Admit under observation status
[2018-06-25] MEDS ORDERED: PANTOPRAZOLE SODIUM 40 MG TAB PO ONE (06:01)
[2018-06-25] MEDS ORDERED: LEVOTHYROXINE 25 MCG TAB PO ONE (06:01)
--- NOTE | 2018-06-25 08:23 | CPEKG ---
Test Reason : OPEN Blood Pressure : / mmHG Vent. Rate : 067 BPM Atrial Rate : 067 BPM P-R Int : 140 ms QRS Dur : 084 ms QT Int : 428 ms P-R-T Axes : 045 022 028 degrees QTc Int : 452 ms Sinus rhythm Borderline T wave abnormalities Minimal ST elevation, anterior leads Confirmed by Ruben Osborn ([id number]) on 06/25/2018 8:23:09 AM Referred By: Ruben Osborn Confirmed By:Ruben Osborn
--- NOTE | 2018-06-25 08:23 | CPEKG ---
Test Reason : OPEN Blood Pressure : / mmHG Vent. Rate : 073 BPM Atrial Rate : 072 BPM P-R Int : 158 ms QRS Dur : 086 ms QT Int : 415 ms P-R-T Axes : 046 017 033 degrees QTc Int : 458 ms Sinus rhythm Confirmed by Ruben Osborn ([id number]) on 06/25/2018 8:23:09 AM Referred By: Ruben Osborn Confirmed By:Ruben Osborn
[2018-06-25] MEDS ORDERED: LOSARTAN POTASSIUM 25 MG TAB PO SCH (09:00)
[2018-06-25] MEDS ORDERED: ATENOLOL 25 MG TAB PO SCH (09:00)
[2018-06-25] MEDS ORDERED: ENOXAPARIN 30 MG/0.3 ML SYR SC SCH (09:00)
[2018-06-25] MEDS ORDERED: ASPIRIN 81 MG CHEWABLE TAB PO SCH (11:00)
--- NOTE | 2018-06-25 14:04 | ASMTCAGE ---
CAGE Do you feel you ought to Answers: No cut down on your drinking or drug use? Do people annoy you by Answers: No criticizing your drinking or drug use? Do you feel guilty about Answers: No your drinking or drug use? Do you drink or use drugs Answers: No first thing in the morning (Eye Chief Clerk)? Additional Comments reports consuming 2 servings per day. Either 2 glasses of wine or 2 glasses (2 fingers) of scotch. Refused resources. Date Signed: 06/25/2018 02:03 PM Electronically Signed By:Ofe Gilliland RN
--- NOTE | 2018-06-25 14:08 | ASMTCMCOM ---
CM Note CM Note Notes: 06/25/2018 Case Management Note Pt admitted for HTN and lightheadedness. Met w/pt to discuss d/c needs. NINA signed. CAGE completed. Pt lives with son Andi Dillon [phone]. Pt is still driving and reports no difficulties preparing meals. Pt has not had home care or a stay at SNF rehab in the past. PCP is Dr. Mcgarry. OT recommending home. PT eval pending. Case Management d/c poc: anticipating independent with follow up as directed. Case Management available if needs change. Date Signed: 06/25/2018 02:07 PM Electronically Signed By:Ofe Gilliland RN
[2018-06-25 16:07] VITALS: BP 168/96
--- NOTE | 2018-06-25 23:10 | PDDCSUM ---
Discharge Summary Discharge Summary: Diagnosis: Dizziness, resolved Accelerated HTN, slightly improved Hypothyroid Hospital Course: The patient is an 82yo F who presented to the ED with dizziness for 1 day and accelerated HTN with BP 188/89. She had a PT session 1 day prior, in which her therapist did massage to her neck. Afterwards, she felt intermittently dazed and dizzy and noted her SBP was in the 200s several times. Her PCP had also noted elevated BP and increased her blood pressure medication ( added losartan and amlodipine to atenolol). The patient came to the hospital later that night for continued dizziness and concern about falling. The patient was feeling better the next day and wanted to go home the next day. Therapy evaluation recommended discharge to home. I had discussed with her doing additional tests to evaluate her dizziness further, particularly CTA of head/neck. She did not want to undergo this test in the hospital because she was afraid of contrast dye injuring her kidneys. Carotid US and brain MRI were also discussed. However, she was hesitant to do multiple tests in the hospital and opted to discuss whether to do additional testing with her PCP in the outpatient setting. She did however, agree to a head CT w/o contrast which ruled out intracranial hemorrhage. The patients blood pressure continued to be high and her last BP was 168/96. She was recommended to continue her blood pressure medications, as it takes time for the body to respond to new medications. Special instructions: Return to hospital if patient develops any concerning changes in symptoms or worsening of symptoms, such as fainting, severe pain, or difficulty breathing. Followup: PCP in 1-2 days. Meds: Resume home meds lisinopril, Luminas pain patch, vit D, and lubricating eyedrops. New meds: metoprolol tartrate 25mg po BID, Eliquis 5mg po BID, and famotidine 20mg po BID.
[2018-06-26] MEDS ORDERED: LEVOTHYROXINE 25 MCG TAB PO SCH (06:00)
[2018-06-26] MEDS ORDERED: CYANO/VITAMIN B12 1000 MCG TAB PO SCH (09:00)
[2018-06-26] MEDS ORDERED: PANTOPRAZOLE SODIUM 40 MG TAB PO SCH (09:00)
[2018-06-26] MEDS ORDERED: CHOLECALCIFEROL VIT D3 1,000 UNITS TAB PO SCH (09:00)
== END 2018-06-25 17:58 | disposition home or self-care (01) ==
LOC: F2W 06-25 05:14
PROVIDERS: ADMIT Student in an Organized Health Care Education/Training Program; ATTEND Internal Medicine
DX: I16.0 Hypertensive urgency (principal); R55 Syncope and collapse; E03.9 Hypothyroidism, unspecified; K21.9 Gastro-esophageal reflux disease without esophagitis
CPT/HCPCS: 70450; 71045; 93005; 96360; 96372; 97161; 97165; 99285; G0378; J1650; 84484-ER

== ENCOUNTER 2018-06-26 20:10 | Emergency (ER) | payer OTHER ==
--- NOTE | 2018-06-26 20:51 | EDPHY ---
H & P Stated Complaint: High BP Time Seen by Provider: 06/26/18 20:47 HPI/ROS: CHIEF COMPLAINT: High blood pressure HISTORY OF PRESENT ILLNESS: The patient is an 82-year-old female with a history of chronic hypertension with a typical blood pressure of 150/90. She was admitted yesterday for hypertensive urgency. She was relatively asymptomatic except for mild lightheadedness. She had a negative CT scan and negative troponins and relatively unremarkable stay. It was thought that maybe her change in medication regimen was the source of her symptoms. She had been taking atenolol for years but recently her primary added amlodipine and losartan. She may have had some confusion taking his medications. Today she was feeling well but took her blood pressure at home and it was 206/90. She decided to come to the emergency department. She is asymptomatic. No headache. No chest pain. No shortness of breath. No focal weakness deficits. She did not take any extra doses of medication. Severity: Mild Modifying factors: None REVIEW OF SYSTEMS: Constitutional: denies: chills, fever, recent illness, recent injury EENTM: denies: blurred vision, double vision, nose congestion Respiratory: denies: cough, shortness of breath Cardiac: denies: chest pain, irregular heart rate, lightheadedness, palpitations Gastrointestinal/Abdominal: denies: abdominal pain, diarrhea, nausea, vomiting, blood streaked stools Genitourinary: denies: dysuria, frequency, hematuria, pain Musculoskeletal: denies: joint pain, muscle pain Skin: denies: lesions, rash, jaundice, bruising Neurological: denies: headache, numbness, paresthesia, tingling, dizziness, weakness Hematologic/Lymphatic: denies: blood clots, easy bleeding, easy bruising Immunologic/allergic: denies: HIV/AIDS, transplant 10 systems reviewed and negative except as noted EXAM: GENERAL: Well-appearing, well-nourished and in no acute distress. HEAD: Atraumatic, normocephalic. EYES: Pupils equal round and reactive to light, extraocular movements intact, sclera anicteric, conjunctiva are normal. ENT: TMs normal, nares patent, oropharynx clear without exudates. Moist mucous membranes. NECK: Normal range of motion, supple without lymphadenopathy or JVD. LUNGS: Breath sounds clear to auscultation bilaterally and equal. No wheezes rales or rhonchi. HEART: Regular rate and rhythm without murmurs, rubs or gallops. ABDOMEN: Soft, nontender, normoactive bowel sounds. No guarding, no rebound. No masses appreciated. BACK: No CVA tenderness, no spinal tenderness, step-offs or deformities EXTREMITIES: Normal range of motion, no pitting or edema. No clubbing or cyanosis. NEUROLOGICAL: Cranial nerves II through XII grossly intact. Normal speech, normal gait. 5/5 strength, normal movement in all extremities, normal sensation , normal reflexes PSYCH: Normal mood, normal affect. SKIN: Warm, dry, normal turgor, no visible rashes or lesions. Source: Patient, Family - Personal History Current Tetanus Diphtheria and Acellular Pertussis (TDAP): Yes - Medical/Surgical History Hx Asthma: No Hx Chronic Respiratory Disease: No Hx Diabetes: No Hx Cardiac Disease: No Hx Renal Disease: No Hx Cirrhosis: No Hx Alcoholism: No Hx HIV/AIDS: No Hx Splenectomy or Spleen Trauma: No Other PMH: HTN, hypothyroid, breast CA s/p mastectomies, lymphedema of right arm , hysterectomy, cholecysectomy, knee surgery elective, cataracts surgery - Family History Significant Family History: No pertinent family hx - Social History Smoking Status: Former smoker Alcohol Use: None Constitutional: Initial Vital Signs Temperature (C) 36.8 C 06/26/18 20:22 Heart Rate 88 06/26/18 20:22 Respiratory Rate 18 06/26/18 20:22 Blood Pressure 207/92 H 06/26/18 20:22 O2 Sat (%) 90 L 06/26/18 20:22 O2 Delivery Mode Nasal Cannula O2 (L/minute) 2 Allergies/Adverse Reactions: adhesive tape Allergy (Verified 06/26/18 20:21) latex Allergy (Verified 06/26/18 20:21) Home Medications: Medication Instructions Recorded Cholecalciferol (Vitamin D3) 5,000 unit PO DAILY 11/18/13 [Vitamin D3] Levothyroxine [Synthroid 25 mcg 0.5 tab PO DAILY06 11/19/13 (*)] Cyanocobalamin [Vitamin B12 (*)] 500 mcg PO DAILY 02/05/16 Omeprazole Magnesium [Prilosec Otc] 20 mg PO DAILY 02/05/16 Acetaminophen [Tylenol 325mg (*)] 650 mg PO Q6HRS PRN #0 tab 04/06/16 Aspirin [Aspirin 81mg (*)] 81 mg PO DAILY 06/25/18 Atenolol [Tenormin 25 mg (*)] 25 mg PO HS 06/25/18 Herbals/Supplements -Info Only 1 ea PO DAILY 06/25/18 Losartan Potassium [Cozaar 25 mg 25 mg PO DAILY@06/25/18 (*)] amLODIPine BESYLATE [Norvasc 2.5 2.5 mg PO DAILY@06/25/18 mg (*)] Medical Decision Making - Diagnostics EKG Interpretation: An EKG obtained and was read and documented in trace view. Please see trace view for full reading and report. Sinus rhythm, no acute ischemic changes ED Course/Re-evaluation: The patient's blood pressure corrected spontaneously to 138/70. She states that this is better than her typical blood pressure which is 150/90. She is asymptomatic. No chest pain. No headache. No focal weakness or deficits. No shortness of breath. We discussed steps she can take at home if her blood pressure is high again. Specifically taking an extra dose or half dose of her atenolol. I encouraged her to record her blood pressures and follow up with Dr. Martinez. She and her family understand and agree with this plan. Differential Diagnosis: Partial list of the Differential diagnosis considered include but were not limited to; hypertensive emergency, hypertensive urgency, anxiety and although unlikely based on the history and physical exam, I also considered Payn, acute coronary disease, CVA, dissection. I discussed these differential diagnoses and the plan with the patient as well as the usual and expected course. The patient understands that the diagnosis is provisional and that in medicine we are not always correct and that further workup is often warranted. Usual and customary warnings were given. All of the patient's questions were answered. The patient was instructed to return to the emergency department should the symptoms at all worsen or return, otherwise to followup with the physician as we discussed. Departure - Departure Disposition: Home, Routine, Self-Care Clinical Impression: Hypertension Qualifiers: Hypertension type: essential hypertension Qualified Code(s): I10 - Essential ( primary) hypertension Condition: Fair Instructions: Chronic Hypertension (ED) Additional Instructions: You may take an extra dose or half dose of atenolol if you notice year blood pressure is high at home over 200. Today a blood pressure corrected spontaneously which is often the case and is why we are hesitant to alter her blood pressure medications in an emergency department setting. Follow up with her regular doctor is we discussed for further blood pressure management. Keep a journal of your blood pressures daily further reference. Referrals: Rosie Mcgarry MD [Primary Care Provider] - As per Instructions
--- NOTE | 2018-06-26 21:04 | CPEKG ---
Test Reason : OPEN Blood Pressure : / mmHG Vent. Rate : 074 BPM Atrial Rate : 074 BPM P-R Int : 126 ms QRS Dur : 086 ms QT Int : 391 ms P-R-T Axes : 052 018 055 degrees QTc Int : 434 ms Sinus rhythm Confirmed by Graeme Pride ([id number]) on 06/26/2018 9:03:40 PM Referred By: PHYSICIAN ED Confirmed By:Graeme Pride
[2018-06-26 21:29] VITALS: BP 137/54
== END 2018-06-26 21:29 | disposition home or self-care (01) ==
DX: I10 Essential (primary) hypertension (principal); Z87.891 Personal history of nicotine dependence

== ENCOUNTER → 2018-07-01 | Outpatient (CLI) | payer OTHER | LOC: FIMAGING 07:50 | PROVIDERS: ATTEND Internal Medicine | DX: N26.1 Atrophy of kidney (terminal) (principal); I10 Essential (primary) hypertension ==

== ENCOUNTER 2018-08-10 21:22 | Emergency (ER) | payer OTHER | END 2018-08-10 22:20 | disposition home or self-care (01) ==